=== PATIENT | male | born 1990 | race Caucasian/White ===

== ENCOUNTER 2017-12-28 08:01 | Emergency (ER) | payer SELFPAY ==
[~2017-12-28] VITALS: Ht 182.9 cm; Wt 127.2 kg
[2017-12-28 08:01] VITALS: BP 138/75
== END 2017-12-28 08:34 | disposition left against medical advice (07) ==
LOC: ED 08:28
DX: Z53.21 Procedure and treatment not carried out due to patient leaving prior to being seen by health care provider (principal)